=== PATIENT | male | born 1995 | race Caucasian/White ===

== ENCOUNTER 2025-03-14 15:37 | Emergency (ER) | payer SELFPAY ==
[~2025-03-14] VITALS: Ht 175.3 cm; Wt 80.0 kg
[2025-03-14 15:43] VITALS: O2SAT 97
[2025-03-14] MEDS ORDERED: LIDOCAINE HCL 1% 20ML VIAL INL ONE (18:15)
[2025-03-14] MEDS: TETANUS, DIPHTHERIA, PERTUSSIS VAC/PF 0.5ML (>10YR OLD) IM ONE (19:12)
[2025-03-14] MEDS ORDERED: TOPUD MT (19:59)
[2025-03-14] MEDS ORDERED: SULF1TAB48 MT (19:59)
[2025-03-14 20:30] VITALS: BP 124/89; PULSE 60; RESP 20; TEMP 36.7; O2SAT 99
== END 2025-03-14 20:40 | disposition home or self-care (01) ==
LOC: ER 15:37
DX: S51.812A Laceration without foreign body of left forearm, initial encounter (principal); X58.XXXA Exposure to other specified factors, initial encounter; Y93.89 Activity, other specified; Y92.89 Other specified places as the place of occurrence of the external cause; Y99.8 Other external cause status
CPT/HCPCS: 73090; 90715; 12005; 90471; 99283; J2003; Z7610 ×4

== ENCOUNTER 2025-03-26 15:30 | Emergency (ER) | payer SELFPAY ==
[~2025-03-26] VITALS: Ht 180.3 cm; Wt 86.1 kg
[~2025-03-26 15:30] MED LIST: SULF1TAB48 MT; TOPUD MT
[2025-03-26 16:13] VITALS: O2SAT 99
[2025-03-26] MEDS ORDERED: CEPH500C2 MT (17:19)
[2025-03-26] MEDS ORDERED: BO1 TP (17:19)
[2025-03-26] MEDS: BACITRACIN ZINC OINT UDPKT TOP ONE (17:56)
[2025-03-26 17:57] VITALS: BP 122/72; PULSE 59; RESP 18; TEMP 36.7; O2SAT 98
== END 2025-03-26 18:00 | disposition home or self-care (01) ==
LOC: ER 15:30
DX: S41.112D Laceration without foreign body of left upper arm, subsequent encounter (principal); Z79.899 Other long term (current) drug therapy; X58.XXXD Exposure to other specified factors, subsequent encounter
CPT/HCPCS: 99283